=== PATIENT | male | born 1980 | race Caucasian/White ===

== ENCOUNTER → 2022-03-25 | Outpatient (CLI) | payer BC ==
[~2022-03-25] MED LIST: CYCL-181; HYDR-4833
== END | disposition home or self-care (01) ==
LOC: LAB 13:36
PROVIDERS: ATTEND Internal Medicine
DX: Z86.018 Personal history of other benign neoplasm (principal)
CPT/HCPCS: 36415; 82565; 84520

== ENCOUNTER → 2024-03-29 | Outpatient (CLI) | payer BC ==
[2024-03-29 09:13] LABS: Urine Bacteria None Seen /hpf (None Seen)
[2024-03-29 09:32] LABS: Basophils # (auto) 0 10 ^3/uL (0-0.2); Basophils % (auto) 0.5 % (0.0-2.0); Eosinophils # (auto) 0.1 10 ^3/uL (0-0.8); Eosinophils % (auto) 1.9 % (0.0-7.0); Hematocrit 45.2 % (41.0-53.0); Hemoglobin 15.8 g/dL (13.5-17.5); Lymphocytes # (auto) 1.8 10 ^3/uL (0.4-5.4); Lymphocytes % (auto) 23.3 % (10.0-50.0); Mean Corpuscular Hemoglobin 30.5 pg (28.0-32.0); Mean Corpuscular Volume 87.3 fL (80.0-100.0); Monocytes # (auto) 0.6 10 ^3/uL (0-1.3); Monocytes % (auto) 7.3 % (0.0-12.0); Neutrophils # (auto) 5.1 10 ^3/uL (1.6-8.6); Platelet Count (auto) 230 10^3/uL (140-450); Red Blood Cells 5.18 10^6/uL (4.5-5.90); Red Cell Distribution Width 12.3 % (11.8-14.3); White Blood Cell 7.6 10^3/uL (4.4-10.8)
[2024-03-29 10:03] LABS: Alanine Aminotransferase 24 U/L (7-40); Albumin 4.6 g/dL (3.2-4.8); Alkaline Phosphatase 58 U/L (46-116); Anion Gap 5 (5-15); Aspartate Aminotransferase 8 U/L (13-40); Blood Urea Nitrogen 12 mg/dL (9-23); Calcium 9.7 mg/dL (8.7-10.4); Carbon Dioxide 28 mmol/L (20-31); Chloride 107 mmol/L (98-107); Cholesterol 192 mg/dL (< 200); Glucose 107 mg/dL (74-106); HDL Cholesterol 51 mg/dL (40-59); LDL Cholesterol 132 mg/dL (< 100); Potassium 4.9 mmol/L (3.5-5.1); Sodium 140 mmol/L (136-145); Triglycerides 50 mg/dL (< 150)
[2024-03-29 10:04] LABS: Bilirubin, Total 1.3 mg/dL (0.2-1.0); Total Protein 7.1 g/dL (5.7-8.2)
[2024-03-29 10:31] LABS: Erythrocyte Sedimentation Rate 2 mm/hr (0-20)
[2024-03-29 10:43] LABS: Urine Blood Negative /uL (Negative); Urine Clarity Clear (Clear); Urine Color Light-Yellow (Yellow); Urine Protein, UAD Negative (Negative); Urine Urobilinogen Normal (Negative); Urine WBC 1 /hpf (0 - 3); Urine pH 5.5 (5.0-9.0)
[2024-03-30 08:07] LABS: Testosterone 419 ng/dL (264-916)
== END | disposition home or self-care (01) ==
LOC: LAB 08:54
PROVIDERS: ATTEND Internal Medicine
DX: Z00.00 Encounter for general adult medical examination without abnormal findings (principal); D17.9 Benign lipomatous neoplasm, unspecified
CPT/HCPCS: 36415; 80053; 80061; 81001; 84402; 84403; 84439; 84443; 85025; 85652

== ENCOUNTER 2024-07-13 08:00 | Day surgery (SDC) | payer BC ==
[2024-07-05 10:10] LABS: Urine Bacteria None Seen /hpf (None Seen)
[2024-07-05 10:17] LABS: Basophils # (auto) 0 10 ^3/uL (0-0.2); Basophils % (auto) 0.6 % (0.0-2.0); Eosinophils # (auto) 0.1 10 ^3/uL (0-0.8); Eosinophils % (auto) 1.7 % (0.0-7.0); Hemoglobin 15.6 g/dL (13.5-17.5); Lymphocytes # (auto) 1.9 10 ^3/uL (0.4-5.4); Lymphocytes % (auto) 30.5 % (10.0-50.0); Mean Corpuscular Hgb Conc. 34.6 g/dL (32.0-36.0); Mean Corpuscular Volume 86.6 fL (80.0-100.0); Monocytes # (auto) 0.5 10 ^3/uL (0-1.3); Monocytes % (auto) 8.4 % (0.0-12.0); Neutrophils # (auto) 3.7 10 ^3/uL (1.6-8.6); Neutrophils % (auto) 58.8 % (37.0-80.0); Platelet Count (auto) 230 10^3/uL (140-450); Red Cell Distribution Width 12.6 % (11.8-14.3); White Blood Cell 6.2 10^3/uL (4.4-10.8)
[2024-07-05 10:27] LABS: Urine Blood TRACE /uL (Negative); Urine Clarity Clear (Clear); Urine Color Yellow (Yellow); Urine Mucus FEW (None Seen); Urine Protein, UAD Negative (Negative); Urine Specific Gravity 1.026 (1.001-1.035); Urine Squamous Epithelial Cell None Seen /hpf (<5); Urine Urobilinogen Normal (Negative); Urine WBC 1 /hpf (0 - 3); Urine pH 5.5 (5.0-9.0)
[2024-07-05 10:34] LABS: INR 0.99 (0.9-1.15); Prothrombin Time 10.5 sec (9.3-11.8)
[2024-07-05 10:44] LABS: Alanine Aminotransferase 22 U/L (7-40); Alkaline Phosphatase 58 U/L (46-116); Anion Gap 4 (5-15); BUN/Creatinine Ratio 10.5 (10.0-20.0); Blood Urea Nitrogen 11 mg/dL (9-23); Calcium 9.9 mg/dL (8.7-10.4); Carbon Dioxide 30 mmol/L (20-31); Chloride 106 mmol/L (98-107); Glucose 103 mg/dL (74-106); Potassium 4.7 mmol/L (3.5-5.1); Sodium 140 mmol/L (136-145); Total Protein 7.1 g/dL (5.7-8.2)
[2024-07-05 10:45] LABS: Albumin 4.9 g/dL (3.2-4.8); Aspartate Aminotransferase 13 U/L (13-40); Bilirubin, Total 1.7 mg/dL (0.2-1.0)
[~2024-07-13] VITALS: Ht 172.7 cm; Wt 81.6 kg
[2024-07-13 09:48] VITALS: PULSE 80; RESP 10; TEMP 98.4; O2SAT 98
[2024-07-13 10:00] VITALS: PULSE 67; RESP 16; O2SAT 95
[2024-07-13 10:03] VITALS: BP 108/69; PULSE 72; RESP 16; O2SAT 95
--- NOTE | 2024-07-27 09:00 | DVHNC2 ---
Procedure - DATE OF PROCEDURE: JULY 13, 2024 SURGEON: RADHA SAUNDERS MD REFERRING PROVIDER: KG VASQUEZ MD PROCEDURE PERFORMED: 1. COLONOSCOPY WITH COLD SNARE POLYPECTOMY WITH ANESTHESIA PRE-PROCEDURE DIAGNOSIS: 1. COLON CANCER SCREENING POSTPROCEDURE DIAGNOSIS: 1. MELANOSIS COLI 2. INTERNAL HEMORRHOIDS 2+ INDICATIONS FOR PROCEDURE: The patient is a 43-year-old male who presents for outpatient colonoscopy for screening. He is of average risk for colon cancer. MEDICATIONS USED: Per Dr. Shoemaker anesthesia DETAILS OF THE PROCEDURE: Informed consent was obtained after risks, benefits, and alternatives, were discussed at length with the patient. The patient gave consent to the procedure as well as the medication used for anesthesia. The patient was placed in the left lateral decubitus position. Digital rectal exam showed internal hemorrhoids. An Olympus variable torsion adult colonoscope was inserted into the rectum and advanced to the cecum. The cecum was identified by the ileocecal valve and the appendiceal orifice. The scope was then withdrawn. The prep was good with little amounts of liquid stool in the right colon. There were no large polyps, masses, strictures, diverticula, or arteriovenous malformation seen. The patient had one 5 mm descending colon polyp removed completely with cold snare. More than 6 minutes of withdrawal time was noted. Retroflexion showed 2+ internal hemorrhoids. The patient tolerated the procedure well. BRISTOL BOWEL PREP SCORE: 9 COLONOSCOPY START TIME: 9:33 a.m. CECUM TIME: 9:39 a.m. COLONOSCOPY END TIME: 9:46 a.m. IMPRESSION: 1. 5 MM TRANSVERSE COLON POLYP REMOVED WITH COLD SNARE 2. 2+ INTERNAL HEMORRHOIDS RECOMMENDATIONS: 1. FOLLOW-UP WITH PROCEDURE AND PATHOLOGY RESULTS IN GI CLINIC 2. REPEAT COLONOSCOPY IN 5 YEARS UNLESS OTHERWISE INDICATED BY SYMPTOMS OR FAMILY HISTORY OR PATHOLOGY 3. HIGH-FIBER DIET 4. FOLLOW UP WITH PRIMARY CARE PHYSICIAN I WOULD LIKE TO THANK DR. VASQUEZFOR THIS REFERRAL RADHA SAUNDERS MD Jul 27, 2024 09:00
== END 2024-07-13 10:15 | disposition home or self-care (01) ==
LOC: GI 08:00
PROVIDERS: ATTEND Specialist
DX: Z12.11 Encounter for screening for malignant neoplasm of colon (principal); K63.89 Other specified diseases of intestine; D12.4 Benign neoplasm of descending colon; K64.1 Second degree hemorrhoids; Z98.890 Other specified postprocedural states
CPT/HCPCS: 36415; 80053; 81001; 85025; 85610; 85730